=== PATIENT | male | born 1975 | race Caucasian/White ===

== ENCOUNTER 2018-01-16 21:48 | Inpatient (IN) | payer SELFPAY ==
--- NOTE | 2018-01-16 22:03 | Emergency Department Report ---
HPI - General Time Seen by Provider: 01/16/18 21:51 - HPI HPI: 42-year-old male presents to the emergency department by EMS from his primary care office, Dr. Tod Bellamy, with a complaint of severe muscle cramping and elevated blood sugar. The patient went to the office earlier in the day secondary to some dry mouth and dizziness. He is a newly diagnosed non- insulin-dependent diabetic and apparently was found to have a blood sugar of greater than 500 at that time. He was given 10 units of insulin and sent home. However the symptoms continued so he went back this afternoon and was still found to have elevated blood sugar and severe muscle cramping. He was given 10 mg of Nubain and 50 of Phenergan and allegedly they were going to sent him in by private vehicle but the symptoms did not improve so he was sent in by EMS. He denies any fever, chest pain, short of breath. No recent travel or sick contacts at home. ED Review of Systems ROS: Stated complaint: ABD CRAMPS Other details as noted in HPI Comment: All other systems reviewed and negative Constitutional: denies: chills, fever Eyes: denies: eye pain, eye discharge, vision change ENT: denies: ear pain, throat pain Respiratory: denies: cough, shortness of breath, wheezing Cardiovascular: denies: chest pain, palpitations Endocrine: increased thirst, increased urine Gastrointestinal: nausea. denies: diarrhea Genitourinary: frequency. denies: dysuria Musculoskeletal: myalgia. denies: joint swelling Skin: denies: rash, lesions Neurological: denies: headache, weakness, paresthesias Physical Exam - Physical Exam Physical Exam: GENERAL: The patient is well-developed well-nourished. HENT: Normocephalic. Atraumatic. Patient has moist mucous membranes. EYES: Extraocular motions are intact. Pupils equal reactive to light bilaterally. NECK: Supple. Trachea is midline. CHEST/LUNGS: Clear to auscultation. There is no respiratory distress noted. HEART/CARDIOVASCULAR: Regular. There is no tachycardia. There is no murmur. ABDOMEN: Abdomen is soft. Mild right upper quadrant tenderness to palpation. No guarding. Patient has normal bowel sounds. There is no abdominal distention. SKIN: Skin is warm and dry. NEURO: The patient is awake, alert, and oriented. The patient is cooperative. The patient has no focal neurologic deficits. The patient has normal speech. MUSCULOSKELETAL: There is no tenderness to palpation of the extremities but the patient has severe visible cramps and/or spasms to the hands and feet to the point where they are flexed and/or contracted. This happens he has some limitation to range of motion but when they stop he once again has full range of motion. Radial pulse +2 over 4 bilaterally. Cap refill less than 2 seconds. ED Medical Decision Making - Lab Data Result diagrams: 01/16/18 22:05 01/16/18 22:05 - Radiology Data Radiology results: report reviewed EXAM: US ABDOMEN LIMITED HISTORY: Right upper quadrant/abdominal pain. TECHNIQUE: Sonographic evaluation was performed of the abdomen with and without color Doppler flow. PRIORS: None. FINDINGS: Marked diffuse increased echotexture of the hepatic parenchyma. No focal lesion or dilated intrahepatic bile ducts seen. The gallbladder demonstrates no evidence of stones and the proximal extrahepatic bile ducts are non-dilated. Evaluation the pancreas is limited. No free or loculated peritoneal collections are noted. No hydronephrosis, renal mass or renal calculus seen. Measurements: Liver: Common bile duct: 4.5 millimeter Gallbladder wall: 2.5 millimeter Right kidney: 10.1 x 5.7 x 5.5 centimeters IMPRESSION: 1. Moderate to severe hepatic steatosis. No discrete hepatic lesion. 2. No sonographic evidence of acute cholecystitis. 3. No evidence of right-sided obstructive uropathy. Transcribed By: DT Dictated By: SHANNEN ELLINGTON DO Electronically Authenticated By: SHANNEN ELLINGTON DO Signed Date/Time: 01/17/18 0120 - Medical Decision Making Patient was dealing with some hyperglycemic issues earlier in the day. However main reason he went to the primary care physician and then to the emergency department was severe muscle spasms and/or cramping. Even as he arrived to the emergency department he was having uncontrollable cramping of the hands and feet. His labs show a urinary tract infection and some mild hypokalemia with potassium of 3.1. Otherwise there are no significant electrolyte abnormalities or any etiology of his symptoms found. He was complaining more of abdominal wall cramping but since he had some upper abdominal discomfort, an ultrasound was done that did not show any cholecystitis, or any objective uropathy but showed some hepatic steatosis. He was given some IV fluid, antibiotics for the UTI, muscle relaxer, pain medication and he still continues to have some discomfort. The patient had a lactic acid level of 4.8 upon presentation. It did go down slightly but has started to go back up. With the patient's continued spasms, contractions, this lactic acidosis, the patient will be admitted to the hospital for further evaluation and treatment and has been accepted for admission by the hospitalist, Dr Black. - Differential Diagnosis dehydration, hypocalcemia, hyponatremia, DKA Critical Care Time: No Critical care attestation.: If time is entered above; I have spent that time in minutes in the direct care of this critically ill patient, excluding procedure time. ED Disposition Clinical Impression: Muscle spasm, Hypokalemia, Dehydration, Muscle cramps, Elevated lactic acid level UTI (urinary tract infection) Qualifiers: Urinary tract infection type: acute cystitis Hematuria presence: without hematuria Qualified Code(s): N30.00 - Acute cystitis without hematuria Disposition: OP ADMIT IP TO THIS HOSP Is pt being admited?: Yes Condition: Fair Time of Disposition: 01:36
[2018-01-16 22:17] LABS: Basophils % (Auto) 0.3 % (0.0-1.8); Eosinophils # (Auto) 0.1 K/mm3 (0.0-0.4); Eosinophils % (Auto) 0.5 % (0.0-4.3); Hematocrit 44.9 % (35.5-45.6); Hemoglobin 15.5 gm/dl (11.8-15.2); Lymphocytes # (Auto) 1.9 K/mm3 (1.2-5.4); Lymphocytes % (Auto) 13.3 % (13.4-35.0); Mean Corpuscular HGB Conc 34 % (32-34); Mean Corpuscular Hemoglobin 27 pg (28-32); Mean Corpuscular Volume 79 fl (84-94); Monocytes % (Auto) 6.8 % (0.0-7.3); Platelet Count 219 K/mm3 (140-440); Red Blood Count 5.68 M/mm3 (3.65-5.03); Red Cell Distribution Width 13.6 % (13.2-15.2)
[2018-01-16 22:36] LABS: Calcium 9.1 mg/dL (8.4-10.2)
[2018-01-16] MEDS ORDERED: NACL 0.9% 1000 ML 1,000 ML IV ONE (22:52)
[2018-01-16] MEDS ORDERED: K-DUR PO ONE (22:52)
[2018-01-16] MEDS ORDERED: TORADOL IV ONE (23:09)
[2018-01-16] MEDS ORDERED: VALIUM IV ONE (23:34)
[2018-01-16] MEDS ORDERED: FLEXERIL PO ONE (23:34)
[2018-01-17 01:04] LABS: Bilirubin,Urine NEG (Negative); Blood,Urine SM (Negative); Color,Urine Yellow (Yellow); Mucus,Urine FEW /HPF; Urobilinogen,Urine < 2.0 mg/dL (<2.0)
[2018-01-17] MEDS ORDERED: ROCEPHIN/NS 1 GM/50 ML 1 GM/50 ML BAG IV ONE (01:08)
--- NOTE | 2018-01-17 01:25 | Ultrasound Report ---
FINAL REPORT EXAM: US ABDOMEN LIMITED HISTORY: Right upper quadrant/abdominal pain. TECHNIQUE: Sonographic evaluation was performed of the abdomen with and without color Doppler flow. PRIORS: None. FINDINGS: Marked diffuse increased echotexture of the hepatic parenchyma. No focal lesion or dilated intrahepatic bile ducts seen. The gallbladder demonstrates no evidence of stones and the proximal extrahepatic bile ducts are non-dilated. Evaluation the pancreas is limited. No free or loculated peritoneal collections are noted. No hydronephrosis, renal mass or renal calculus seen. Measurements: Liver: Common bile duct: 4.5 millimeter Gallbladder wall: 2.5 millimeter Right kidney: 10.1 x 5.7 x 5.5 centimeters IMPRESSION: 1. Moderate to severe hepatic steatosis. No discrete hepatic lesion. 2. No sonographic evidence of acute cholecystitis. 3. No evidence of right-sided obstructive uropathy.
[2018-01-17] MEDS ORDERED: ZOFRAN IV PRN ×2 (01:40→01:43)
[2018-01-17] MEDS ORDERED: TYLENOL PO PRN ×2 (01:40→01:43)
[2018-01-17] MEDS ORDERED: SODIUM CHLORIDE FLUSH SYRINGE 10 ML IV PRN (01:43)
--- NOTE | 2018-01-17 01:43 | History and Physical Report ---
History of Present Illness Date of examination: 01/17/18 Chief complaint: Dizziness and muscle cramps History of present illness: 42-year-old male with past medical history significant for hypertension presented to the emergency department further complaints of dizziness and cramps. Patient was diagnosed with diabetes today at the primary care physician office and was given insulin and discharged home. When he went home he feel dizzy and muscle cramps and came to ED. patient has been having polyuria, polydipsia, dry mouth for the last one month. In the ED patient is found to have potassium of 3.1, lactic acidosis and UTI. Patient admitted to the floor for further management. REVIEW OF SYSTEMS: GENERAL: no weight change, no fatigue, no fever HEAD: no head ache EYES: no blurry vision, no acute visual loss EARS: no hearing loss, no discharge, no earache NOSE: no stuffiness, no sneezing, no discharge MOUTH, THROAT AND NECK: no bleeding gums, no sore throat, no swollen neck CARDIAC: no palpitations, no dyspnea on exertion, no orthopnea, no PND, no edema , no chest pain RESPIRATORY: no shortness of breath, no wheeze, no cough, no sputum, no hemoptysis, no asthma GI: no decreased appetite, no nausea, no vomiting, no dysphagia, no diarrhea, no constipation, no abdominal pain URINARY: no change in frequency, no urgency, no hematuria, no incontinence MUSCULOSKELETAL: no muscle weakness, no pain, no joint stiffness NEUROLOGIC: no loss of sensation/numbness, no tingling, no tremors, no weakness/ paralysis HEMATOLOGIC: no anemia, no easy bruising SKIN: no rashes ENDOCRINE: As stated in the HPI. PSYCHIATRIC: no anxiety, no depression, no suicidal ideations Past History Past Medical History: hypertension Past Surgical History: No surgical history Social history: full code. denies: smoking, alcohol abuse, prescription drug abuse, IV drug use Family history: diabetes (runs in the family) Medications and Allergies Allergies Allergy/AdvReac Type Severity Reaction Status Date / Time No Known Allergies Allergy Verified 01/16/18 22:14 Active Meds: Active Medications Acetaminophen (Tylenol) 650 mg PO Q4H PRN PRN Reason: Pain MILD(1-3)/Fever >100.5/REYNOSO Baclofen (Lioresal) 10 mg PO TID ROBYN Cyclobenzaprine HCl (Flexeril) 10 mg PO DAILY ROBYN Ceftriaxone Sodium (Rocephin/Ns 1 Gm/50 Ml) 1 gm in 50 mls @ 100 mls/hr IV ONCE ONE; Protocol Stop: 01/17/18 01:37 Sodium Chloride (Nacl 0.9% 1000 Ml) 2,000 mls @ 150 mls/hr IV DIRECT ROBYN Ceftriaxone Sodium (Rocephin/Ns 1 Gm/50 Ml) 1 gm in 50 mls @ 100 mls/hr IV Q24HR ROBYN; Protocol Ondansetron HCl (Zofran) 4 mg IV Q8H PRN PRN Reason: N/V unrelieved by Reglan Exam - Physical Exam Narrative exam: Not in cardiopulmonary distress. The patient is obese. Vital signs as documented. Head exam is unremarkable. No scleral icterus . Neck is without jugular venous distension, thyromegaly, or carotid bruits. Lungs are clear to auscultation. Cardiac exam reveals regular rate and Rhythm. Abdominal exam reveals normal bowel sounds. Extremities are nonedematous and both femoral and pedal pulses are normal. 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 No focal weakness. - Constitutional Vitals: Temp Pulse Resp BP Pulse Ox 98.7 F 96 H 33 H 119/80 97 01/16/18 22:15 01/16/18 23:45 01/16/18 23:45 01/16/18 23:45 01/16/18 23:45 Results - Labs CBC & Chem 7: 01/17/18 01:55 01/16/18 22:05 Labs: Laboratory Last Values WBC 14.6 K/mm3 (4.5-11.0) H 01/16/18 22:05 RBC 5.68 M/mm3 (3.65-5.03) H 01/16/18 22:05 Hgb 15.5 gm/dl (11.8-15.2) H 01/16/18 22:05 Hct 44.9 % (35.5-45.6) 01/16/18 22:05 MCV 79 fl (84-94) L 01/16/18 22:05 MCH 27 pg (28-32) L 01/16/18 22:05 MCHC 34 % (32-34) 01/16/18 22:05 RDW 13.6 % (13.2-15.2) 01/16/18 22:05 Plt Count 219 K/mm3 (140-440) 01/16/18 22:05 Lymph % (Auto) 13.3 % (13.4-35.0) L 01/16/18 22:05 [place] % (Auto) 6.8 % (0.0-7.3) 01/16/18 22:05 Eos % (Auto) 0.5 % (0.0-4.3) 01/16/18 22:05 Baso % (Auto) 0.3 % (0.0-1.8) 01/16/18 22:05 Lymph # 1.9 K/mm3 (1.2-5.4) 01/16/18 22:05 George # 1.0 K/mm3 (0.0-0.8) H 01/16/18 22:05 Eos # 0.1 K/mm3 (0.0-0.4) 01/16/18 22:05 Baso # 0.0 K/mm3 (0.0-0.1) 01/16/18 22:05 Seg Neutrophils % 79.1 % (40.0-70.0) H 01/16/18 22:05 Seg Neutrophils # 11.5 K/mm3 (1.8-7.7) H 01/16/18 22:05 VBG pH 7.386 (7.320-7.420) 01/16/18 22:05 Sodium 132 mmol/L (137-145) L 01/16/18 22:05 Potassium 3.1 mmol/L (3.6-5.0) L 01/16/18 22:05 Chloride 89.5 mmol/L (98-107) L 01/16/18 22:05 Carbon Dioxide 21 mmol/L (22-30) L 01/16/18 22:05 Anion Gap 25 mmol/L 01/16/18 22:05 BUN 15 mg/dL (9-20) 01/16/18 22:05 Creatinine 1.3 mg/dL (0.8-1.5) 01/16/18 22:05 Estimated GFR 60 ml/min 01/16/18 22:05 BUN/Creatinine Ratio 12 % 01/16/18 22:05 Glucose 165 mg/dL (75-100) H 01/16/18 22:05 POC Glucose 88 (70-105) 01/17/18 01:00 Lactic Acid 3.10 mmol/L (0.7-2.0) H* 01/16/18 23:45 Calcium 9.1 mg/dL (8.4-10.2) 01/16/18 22:05 Magnesium 1.90 mg/dL (1.7-2.3) 01/16/18 22:05 Total Creatine Kinase 382 units/L (55-170) H 01/16/18 22:05 TSH 5.760 mlU/mL (0.270-4.200) H 01/16/18 22:05 Urine Color Yellow (Yellow) 01/17/18 00:45 Urine Turbidity Clear (Clear) 01/17/18 00:45 Urine pH 5.0 (5.0-7.0) 01/17/18 00:45 Ur Specific [place] 1.015 (1.003-1.030) 01/17/18 00:45 Urine Protein 100 mg/dl mg/dL (Negative) 01/17/18 00:45 Urine Glucose (UA) >=500 mg/dL (Negative) 01/17/18 00:45 Urine Ketones 20 mg/dL (Negative) 01/17/18 00:45 Urine Blood Sm (Negative) 01/17/18 00:45 Urine Nitrite Neg (Negative) 01/17/18 00:45 Urine Bilirubin Neg (Negative) 01/17/18 00:45 Urine Urobilinogen < 2.0 mg/dL (<2.0) 01/17/18 00:45 Ur Leukocyte Esterase Mod (Negative) 01/17/18 00:45 Urine WBC (Auto) 44.0 /HPF (0.0-6.0) H 01/17/18 00:45 Urine RBC (Auto) 4.0 /HPF (0.0-6.0) 01/17/18 00:45 U Epithel Cells (Auto) < 1.0 /HPF (0-13.0) 01/17/18 00:45 Urine Mucus Few /HPF 01/17/18 00:45 - Imaging and Cardiology US - abdomen: report reviewed (no significant findings.) Assessment and Plan Assessment and plan: New onset Diabetes Mellitus - Sliding scale insulin, follow hemoglobin A1c - Diabetic education Cramps secondary to hypokalemia - Repleted Sepsis secondary to UTI - On ceftriaxone - Follow urine culture Lactic acidosis - IV fluids - Repeat lactic acid level DVT prophylaxis - On lovenox Disposition - Admit to medical floor Advance Directives: Yes VTE prophylaxis?: Chemical Plan of care discussed with patient/family: Yes
[2018-01-17] MEDS ORDERED: D50W (25GM) Syringe IV PRN (01:46)
[2018-01-17 02:15] LABS: Basophils % (Auto) 0.3 % (0.0-1.8); Eosinophils % (Auto) 0.2 % (0.0-4.3); Hematocrit 43.6 % (35.5-45.6); Hemoglobin 14.4 gm/dl (11.8-15.2); Lymphocytes % (Auto) 13.9 % (13.4-35.0); Mean Corpuscular HGB Conc 33 % (32-34); Mean Corpuscular Hemoglobin 27 pg (28-32); Mean Corpuscular Volume 82 fl (84-94); Monocytes # (Auto) 0.7 K/mm3 (0.0-0.8); Monocytes % (Auto) 5.2 % (0.0-7.3); Platelet Count 225 K/mm3 (140-440); Red Blood Count 5.33 M/mm3 (3.65-5.03); Red Cell Distribution Width 13.8 % (13.2-15.2)
[2018-01-17] MEDS ORDERED: cefTRIAXone 1 GM in NACL 0.9% 20 ML IV ONE (02:15)
[2018-01-17 02:51] LABS: Chol/HDL Ratio 5.2 %
[2018-01-17 03:00] LABS: BUN/Creatinine Ratio 12; Blood Urea Nitrogen 14 mg/dL (9-20); Calcium 8.4 mg/dL (8.4-10.2); Hemolysis Index 4
[2018-01-17 03:43] LABS: Amphetamine Screen,Urine PRESUMPTIVE NEGATIVE; Benzodiazepines Screen,Urine PRESUMPTIVE NEGATIVE; Cannabinoid Screen,Urine PRESUMPTIVE NEGATIVE; Cocaine Screen,Urine PRESUMPTIVE NEGATIVE; Methadone Screen,Urine PRESUMPTIVE NEGATIVE; Opiate Screen,Urine PRESUMPTIVE NEGATIVE
[2018-01-17] MEDS: HEPARIN SUB-Q SCH ×3 (06:01→22:24)
[2018-01-17] MEDS: HumaLOG SUB-Q SCH ×4 (07:30→23:30)
[2018-01-17] MEDS ORDERED: LIORESAL PO SCH (08:00)
[2018-01-17] MEDS ORDERED: LANTUS SUB-Q SCH (08:00)
[2018-01-17] MEDS ORDERED: ROCEPHIN/NS 1 GM/50 ML 1 GM/50 ML BAG IV SCH (10:00)
[2018-01-17] MEDS ORDERED: HumaLOG SUB-Q ONE ×4 (10:00)
[2018-01-17] MEDS: FLEXERIL PO SCH (10:16)
[2018-01-17] MEDS: PEPCID PO SCH ×2 (10:28→22:24)
[2018-01-17] MEDS: SODIUM CHLORIDE FLUSH SYRINGE 10 ML IV SCH ×2 (10:33→22:26)
[2018-01-17] MEDS: NACL 0.9% 1000 ML 2,000 ML IV SCH ×2 (15:54→22:22)
[2018-01-18] MEDS: HEPARIN SUB-Q SCH ×3 (05:46→21:16)
[2018-01-18] MEDS: NACL 0.9% 1000 ML 2,000 ML IV SCH ×3 (05:46→19:45)
--- NOTE | 2018-01-18 08:34 | Progress Note ---
Assessment and Plan Assessment and plan: 42-year-old male with past medical history significant for hypertension presented to the emergency department further complaints of dizziness and cramps New onset Diabetes Mellitus - Sliding scale insulin, follow hemoglobin A1c - Diabetic education Cramps secondary to hypokalemia - Repleted Sepsis secondary to UTI - On empiric ceftriaxone - urine culture reviewed, contaminated sample Lactic acidosis -received IVF DVT prophylaxis - On lovenox subliclinical hypothyroidism no rx indicated, repeat TFTs in 4- 6 weeks Disposition - Admit to medical floor History Interval history: Review of systems Constitutional: No fevers, no malaise, no joint pains CVS: No chest pain, no orthopnea, no dyspnea on exertion, no pedal edema GI: No abdominal pain, no diarrhea, no vomiting, no constipation Respiratory: No shortness of breath, no wheezing, no coughing Hospitalist Physical - Physical exam Narrative exam: General.: Appears well, no distress, nontoxic HEENT: Moist mucous membranes, extraocular muscles intact, no lymphadenopathy Neck: supple Cardiac: S1-S2 heard Lungs: clear to auscultation bilaterally Abdomen: soft , nontender, nondistended, bowel sounds positive Extremities: no edema clubbing or cyanosis Skin: no rash or lesions Neurologic: no gross focal deficits Psych: appropriate behavior, appropriate mood, corporative, judgment intact - Constitutional Vitals: Temp Pulse Resp BP Pulse Ox 98.6 F 78 22 116/70 94 01/17/18 21:45 01/17/18 21:45 01/17/18 21:45 01/17/18 21:45 01/17/18 21:45 Results - Labs CBC & Chem 7: 01/17/18 01:55 01/17/18 01:55 Labs: Laboratory Last Values WBC 14.2 K/mm3 (4.5-11.0) H 01/17/18 01:55 RBC 5.33 M/mm3 (3.65-5.03) H 01/17/18 01:55 Hgb 14.4 gm/dl (11.8-15.2) 01/17/18 01:55 Hct 43.6 % (35.5-45.6) 01/17/18 01:55 MCV 82 fl (84-94) L 01/17/18 01:55 MCH 27 pg (28-32) L 01/17/18 01:55 MCHC 33 % (32-34) 01/17/18 01:55 RDW 13.8 % (13.2-15.2) 01/17/18 01:55 Plt Count 225 K/mm3 (140-440) 01/17/18 01:55 Lymph % (Auto) 13.9 % (13.4-35.0) 01/17/18 01:55 [place] % (Auto) 5.2 % (0.0-7.3) 01/17/18 01:55 Eos % (Auto) 0.2 % (0.0-4.3) 01/17/18 01:55 Baso % (Auto) 0.3 % (0.0-1.8) 01/17/18 01:55 Lymph # 2.0 K/mm3 (1.2-5.4) 01/17/18 01:55 [place] # 0.7 K/mm3 (0.0-0.8) 01/17/18 01:55 Eos # 0.0 K/mm3 (0.0-0.4) 01/17/18 01:55 Baso # 0.0 K/mm3 (0.0-0.1) 01/17/18 01:55 Seg Neutrophils % 80.4 % (40.0-70.0) H 01/17/18 01:55 Seg Neutrophils # 11.4 K/mm3 (1.8-7.7) H 01/17/18 01:55 VBG pH 7.386 (7.320-7.420) 01/16/18 22:05 Sodium 132 mmol/L (137-145) L 01/17/18 01:55 Potassium 3.7 mmol/L (3.6-5.0) 01/17/18 01:55 Chloride 91.8 mmol/L (98-107) L 01/17/18 01:55 Carbon Dioxide 21 mmol/L (22-30) L 01/17/18 01:55 Anion Gap 23 mmol/L 01/17/18 01:55 BUN 14 mg/dL (9-20) 01/17/18 01:55 Creatinine 1.2 mg/dL (0.8-1.5) 01/17/18 01:55 Estimated GFR > 60 ml/min 01/17/18 01:55 BUN/Creatinine Ratio 12 % 01/17/18 01:55 Glucose 102 mg/dL (75-100) H 01/17/18 01:55 POC Glucose 129 (70-105) H 01/18/18 05:40 Hemoglobin A1c 16.5 % (4-6) H 01/17/18 01:55 Lactic Acid 1.90 mmol/L (0.7-2.0) 01/17/18 01:55 Calcium 8.4 mg/dL (8.4-10.2) 01/17/18 01:55 Magnesium 1.90 mg/dL (1.7-2.3) 01/16/18 22:05 Total Creatine Kinase 382 units/L (55-170) H 01/16/18 22:05 Triglycerides 335 mg/dL (2-149) H 01/17/18 01:55 Cholesterol 203 mg/dL (50-199) H 01/17/18 01:55 LDL Cholesterol Direct 97 mg/dL (50-130) 01/17/18 01:55 HDL Cholesterol 39 mg/dL (40-59) L 01/17/18 01:55 Cholesterol/HDL Ratio 5.20 % 01/17/18 01:55 TSH 5.760 mlU/mL (0.270-4.200) H 01/16/18 22:05 Free T4 1.18 ng/dL (0.76-1.46) 01/17/18 03:05 Urine Color Yellow (Yellow) 01/17/18 00:45 Urine Turbidity Clear (Clear) 01/17/18 00:45 Urine pH 5.0 (5.0-7.0) 01/17/18 00:45 Ur Specific [place] 1.015 (1.003-1.030) 01/17/18 00:45 Urine Protein 100 mg/dl mg/dL (Negative) 01/17/18 00:45 Urine Glucose (UA) >=500 mg/dL (Negative) 01/17/18 00:45 Urine Ketones 20 mg/dL (Negative) 01/17/18 00:45 Urine Blood Sm (Negative) 01/17/18 00:45 Urine Nitrite Neg (Negative) 01/17/18 00:45 Urine Bilirubin Neg (Negative) 01/17/18 00:45 Urine Urobilinogen < 2.0 mg/dL (<2.0) 01/17/18 00:45 Ur Leukocyte Esterase Mod (Negative) 01/17/18 00:45 Urine WBC (Auto) 44.0 /HPF (0.0-6.0) H 01/17/18 00:45 Urine RBC (Auto) 4.0 /HPF (0.0-6.0) 01/17/18 00:45 U Epithel Cells (Auto) < 1.0 /HPF (0-13.0) 01/17/18 00:45 Urine Mucus Few /HPF 01/17/18 00:45 Urine Opiates Screen Presumptive negative 01/17/18 01:36 Urine Methadone Screen Presumptive negative 01/17/18 01:36 Ur Barbiturates Screen Presumptive negative 01/17/18 01:36 Ur Phencyclidine Scrn Presumptive negative 01/17/18 01:36 Ur Amphetamines Screen Presumptive negative 01/17/18 01:36 U Benzodiazepines Scrn Presumptive negative 01/17/18 01:36 Urine Cocaine Screen Presumptive negative 01/17/18 01:36 U Marijuana (THC) Screen Presumptive negative 01/17/18 01:36 Drugs of Abuse Note Disclamer 01/17/18 01:36
--- NOTE | 2018-01-18 08:35 | Discharge Summary ---
Providers - Providers Date of Admission: 01/17/18 01:43 Attending physician: KAYLAH TATUM MD Primary care physician: ALEENA STOUT Hospitalization Condition: Fair Hospital course: New onset Diabetes Mellitus - Sliding scale insulin, follow hemoglobin A1c - Diabetic education Cramps secondary to hypokalemia - Repleted Sepsis secondary to UTI - On ceftriaxone - Follow urine culture Lactic acidosis - IV fluids - Repeat lactic acid level DVT prophylaxis - On lovenox Disposition - Admit to medical floor Disposition: MD-01 TO HOME OR SELFCARE Time spent for discharge: 33 minutes Core Measure Documentation - Palliative Care Palliative Care/ Comfort Measures: Not Applicable - Core Measures Any of the following diagnoses?: none Exam - Constitutional Vitals: Temp Pulse Resp BP Pulse Ox 98.6 F 78 22 116/70 94 01/17/18 21:45 01/17/18 21:45 01/17/18 21:45 01/17/18 21:45 01/17/18 21:45 General appearance: Present: no acute distress, well-nourished - EENT Eyes: Present: PERRL ENT: hearing intact, clear oral mucosa - Neck Neck: Present: supple, normal ROM - Respiratory Respiratory effort: normal Respiratory: bilateral: CTA - Cardiovascular Heart Sounds: Present: S1 & S2. Absent: rub, click - Extremities Extremities: pulses symmetrical, No edema Peripheral Pulses: within normal limits - Abdominal General gastrointestinal: Present: soft, non-tender, non-distended, normal bowel sounds Male genitourinary: Present: normal - Integumentary Integumentary: Present: clear, warm, dry - Musculoskeletal Musculoskeletal: gait normal, strength equal bilaterally - Psychiatric Psychiatric: appropriate mood/affect, intact judgment & insight - Neurologic Neurologic: CNII-XII intact, moves all extremities Plan Follow up with: ALEENA STOUT MD [Primary Care Provider] - 3-5 Days Prescriptions: Insulin NPH/Regular [NovoLIN 70/30] 15 unit SUB-Q BIDDIAB #1 vial Lisinopril [Zestril TAB] 20 mg PO QDAY #20 tablet
[2018-01-18] MEDS: HumaLOG SUB-Q SCH ×4 (09:48→23:34)
[2018-01-18] MEDS ORDERED: HumaLOG SUB-Q ONE ×3 (10:00)
[2018-01-18] MEDS: PEPCID PO SCH ×2 (11:50→21:16)
[2018-01-18] MEDS: cefTRIAXone 1 GM in NACL 0.9% 20 ML IV SCH (11:50)
[2018-01-18] MEDS: FLEXERIL PO SCH (11:50)
[2018-01-18] MEDS: SODIUM CHLORIDE FLUSH SYRINGE 10 ML IV SCH ×2 (11:51→23:48)
[2018-01-19] MEDS: NACL 0.9% 1000 ML 2,000 ML IV SCH ×2 (03:28→09:13)
[2018-01-19] MEDS: HumaLOG SUB-Q SCH ×3 (06:58→17:29)
[2018-01-19] MEDS: HEPARIN SUB-Q SCH ×2 (08:06→15:24)
[2018-01-19] MEDS: PEPCID PO SCH (09:07)
[2018-01-19] MEDS: SODIUM CHLORIDE FLUSH SYRINGE 10 ML IV SCH (09:07)
[2018-01-19] MEDS: FLEXERIL PO SCH (09:07)
[2018-01-19] MEDS: cefTRIAXone 1 GM in NACL 0.9% 20 ML IV SCH (11:04)
[2018-01-19] MEDS ORDERED: HumaLOG SUB-Q ONE ×2 (12:00)
[2018-01-19] MEDS ORDERED: Fluarix Quad 2017-2018(36 MOS+ IM ONE (12:00)
[2018-01-19 15:27] VITALS: BP 141/104
== END 2018-01-19 17:55 | disposition home or self-care (01) | DRG 872 ==
LOC: ED 21:48 → 3A 01-17 01:43
PROVIDERS: ADMIT Internal Medicine; ATTEND Internal Medicine
PROC: 3E0234Z Introduction of Serum, Toxoid and Vaccine into Muscle, Percutaneous Approach (ICD-10-PCS; principal; 2018-01-19)
DX: A41.9 Sepsis, unspecified organism (principal); N39.0 Urinary tract infection, site not specified; M62.838 Other muscle spasm; R79.89 Other specified abnormal findings of blood chemistry; E11.9 Type 2 diabetes mellitus without complications; E86.0 Dehydration; Z82.49 Family history of ischemic heart disease and other diseases of the circulatory system; E87.6 Hypokalemia; E02 Subclinical iodine-deficiency hypothyroidism; Z23 Encounter for immunization
CPT/HCPCS: 36415; 76705; 80048; 80061; 80307; 81001; 82140; 82550; 82805; 82962; 83036; 83735; 84439; 84443; 85025; 87086; 90686; 96360; 99284; J0696; J1644; J1815; J1885; J7030